=== PATIENT | female | born 1980 | race Caucasian/White ===

== ENCOUNTER 2016-08-12 15:47 | Inpatient (IN) | payer OTHER ==
[~2016-08-12] VITALS: Ht 162.6 cm; Wt 81.3 kg
[~2016-08-12 15:47] MED LIST: ADDERALL XR 2020 MG PO; ADDERALL XR 2525 MG PO; AMBIEN5 MG; AMPHETAMINE SALT5 MG PO; ATARAX,VISTARIL25 MG PO; BENTYL10 MG PO; CLONAZEPAM0.5 MG PO; CLONAZEPAM2 MG PO; CYMBALTA60 MG; CYMBALTA60 MG PO; DEPAKOTE500 MG PO; DESYREL100 MG PO; DULOXETINE HCL30 MG PO; EFFEXOR XR150 MG PO; EPIPEN ADU0.3 MG/0.3 IM; FLUOXETINE HCL20 MG PO; IMITREX100 MG PO; INDERAL LA120 MG PO; KEPPRA250 MG PO; LYRICA150 MG PO; MACROBID100 MG PO; OMEPRAZOLE20 MG PO; OXYCODONE HCL5 MG PO; PERCOCET 5/31 TABLET PO; PREDNISONE20 MG PO; PROMETHAZINE HC25 M1 PO; PROPRANOLOL HC120 MG; PROZAC20 MG PO; RANITIDINE HCL150 M1 PO; TOPAMAX25 MG PO; TORADOL10 MG PO; TRAMADOL HCL50 MG PO; TRILEPTAL75 MG; TRILEPTAL75 MG PO; TYLENOL WITH C1 EACH PO; ULTRAM50 MG PO; ZANTAC300 MG PO; ZOFRAN ODT4 MG PO; ZOFRAN4 MG PO
[2016-08-12] MEDS ORDERED: AMBIEN10 MG PO (16:23)
[2016-08-12 16:30] LABS: HEMATOCRIT 40.3 % (36.0-46.0); MCH 29.6 PG (29.0-34.0); MCHC 34.5 G/DL (30.0-36.0); MCV 85.7 FL (83-99); MEAN PLAT.VOLUME 10.2 uM^3 (9.5-12.4); PLATELET COUNT 255 K/uL (156-360); RBC DIS.WIDTH-CV 11.9 % (11.8-14.6); RBC DIS.WIDTH-SD 35.7 % (39-53); WHITE BLOOD COUNT 9.4 K/uL (4.1-10.2)
[2016-08-12 16:38] LABS: CHLORIDE 110 mEq/L (99-109); SODIUM 143 mEq/L (136-147)
[2016-08-12 16:40] LABS: GLUCOSE 98 mg/dL (70-99)
[2016-08-12 16:42] LABS: ANION GAP 9 MEQ/L (2-14)
[2016-08-12 16:43] LABS: SERUM ETHYL ALCOHOL < 10 mg/dL
[2016-08-12 16:44] LABS: GFR ESTIMATE (CALCULATED) > 59 mL/min/
[2016-08-12 16:45] LABS: UREA NITROGEN (BUN) 16 mg/dL (9-23)
[2016-08-12 17:23] LABS: AMPHETAMINE NEGATIVE (500 ng/mL); BARBITURATES NEGATIVE (200 ng/mL); BENZODIAZEPINES PRESUMPTIVE POSITIVE (150 ng/mL); COCAINE NEGATIVE (150 ng/mL); INTERNAL CONTROLS VALID? YES; METHADONE NEGATIVE (200 ng/mL); METHAMPHETAMINE NEGATIVE (500 ng/mL); OPIATES (MORPHINE) PRESUMPTIVE POSITIVE (100 ng/mL); OXYCODONE NEGATIVE (100 ng/mL); PHENCYCLIDINE NEGATIVE (25 ng/mL); PROPOXYPHENE NEGATIVE (300 ng/mL); THC CANNABINOIDS NEGATIVE (50 ng/mL); TRICYCLIC ANTIDEPRESSANTS NEGATIVE (300 ng/mL)
[2016-08-12 17:24] LABS: ADD MEDTOX COMMENT Y
[2016-08-12 17:46] LABS: BENZODIAZEPINES QUANT VALUE 0 NG/ML
[2016-08-12] MEDS ORDERED: KEPPRA750 MG PO (18:00)
[2016-08-12] MEDS ORDERED: CLONAZEPAM2 MG PO (18:00)
[2016-08-12] MEDS ORDERED: ULTRAM50 MG PO (18:00)
[2016-08-12] MEDS ORDERED: ADDERALL XR 2020 MG PO (18:01)
[2016-08-12] MEDS ORDERED: FLUOXETINE HCL40 MG PO (18:01)
[2016-08-12] MEDS ORDERED: CYMBALTA60 MG PO (18:01)
[2016-08-12 18:02] LABS: BENZODIAZEPINES, URINE SCREEN Negative (200 ng/mL)
[2016-08-12 19:26] VITALS: BP 154/89
[2016-08-12 19:44] VITALS: BP 154/89
[2016-08-13 07:54] VITALS: BP 119/81
[2016-08-13 15:43] VITALS: BP 100/56
[2016-08-14 08:00] VITALS: BP 105/66
[2016-08-14 15:32] VITALS: BP 113/69
[2016-08-15 07:55] VITALS: BP 110/57
[2016-08-15 15:25] VITALS: BP 118/63
[2016-08-16 09:08] VITALS: BP 169/82
[2016-08-16 16:14] VITALS: BP 125/72
[2016-08-17 07:51] VITALS: BP 109/67
[2016-08-17 15:38] VITALS: BP 130/81
[2016-08-18 07:54] VITALS: BP 126/71
[2016-08-18] MEDS ORDERED: SERTRALINE HCL50 MG PO (10:38)
== END 2016-08-18 14:22 | disposition home or self-care (01) | DRG 885 ==
LOC: EME 15:47 → 1WEST 17:47 → EDOF 17:47 → 1WEST 19:43
DX: F33.2 Major depressive disorder, recurrent severe without psychotic features (principal); R45.851 Suicidal ideations; G40.109 Localization-related (focal) (partial) symptomatic epilepsy and epileptic syndromes with simple partial seizures, not intractable, without status epilepticus; G43.909 Migraine, unspecified, not intractable, without status migrainosus; M79.7 Fibromyalgia; F41.9 Anxiety disorder, unspecified; G47.00 Insomnia, unspecified; Z88.0 Allergy status to penicillin; Z88.2 Allergy status to sulfonamides
CPT/HCPCS: 80048; 84999; 85027; 90839; 97150 GO; 97165 GO; 99281; 99284; G0480

== ENCOUNTER 2016-11-08 16:52 | Emergency (ER) | payer OTHER ==
[~2016-11-08] VITALS: Ht 162.6 cm; Wt 95.1 kg
[~2016-11-08 16:52] MED LIST changes: +AMBIEN10 MG PO; +FLUOXETINE HCL40 MG PO; +KEPPRA750 MG PO; +SERTRALINE HCL50 MG PO
[2016-11-08] MEDS ORDERED: DOXEPIN HCL100 MG PO (18:17)
[2016-11-08] MEDS ORDERED: ADDERALL XR 2020 MG PO (18:17)
[2016-11-08] MEDS ORDERED: TIZANIDINE HCL4 MG PO (18:18)
[2016-11-08] MEDS ORDERED: PROPRANOLOL HCL60 MG PO (18:18)
[2016-11-08 18:50] LABS: HEMATOCRIT 34.4 % (36.0-46.0); MCH 30.6 PG (29.0-34.0); MCHC 34.3 G/DL (30.0-36.0); MCV 89.4 FL (83-99); MEAN PLAT.VOLUME 9.5 uM^3 (9.5-12.4); PLATELET COUNT 234 K/uL (156-360); RBC DIS.WIDTH-CV 12.4 % (11.8-14.6); RBC DIS.WIDTH-SD 40.2 % (39-53); RED BLOOD COUNT 3.85 M/uL (3.80-5.20); WHITE BLOOD COUNT 7.6 K/uL (4.1-10.2)
[2016-11-08 19:04] LABS: ADD MIUA? YES; BILIRUBIN NEGATIVE; BLOOD NEGATIVE; COLOR YELLOW ((YELLOW)); GLUCOSE (STRIP) NEGATIVE; KETONES NEGATIVE; LEUKOCYTES TRACE; NITRITE NEGATIVE; PROTEIN (STRIP) NEGATIVE; SPECIFIC GRAVITY 1.014 (1.000-1.030); UROBILINOGEN 0.2 MG/DL (0.2-1.0)
[2016-11-08 19:06] LABS: BACTERIA NONE SEEN /HPF; EPITHELIAL CELLS RARE /HPF; MUCUS NONE SEEN /LPF; RED BLOOD CELLS 0-5 /HPF (0-5); WHITE BLOOD CELLS 0-5 /HPF (0-5)
[2016-11-08 19:07] LABS: CHLORIDE 106 mEq/L (99-109); POTASSIUM 3.9 mEq/L (3.7-5.4); SODIUM 139 mEq/L (136-147)
[2016-11-08 19:09] LABS: GLUCOSE 106 mg/dL (70-99)
[2016-11-08 19:10] LABS: ANION GAP 10 MEQ/L (2-14)
[2016-11-08 19:11] LABS: TOTAL BILIRUBIN 0.3 mg/dL (0.0-1.0)
[2016-11-08 19:13] LABS: ALKALINE PHOSPHATASE 66 IU/L (3-129); GFR ESTIMATE (CALCULATED) > 59 mL/min/
[2016-11-08 19:14] LABS: UREA NITROGEN (BUN) 13 mg/dL (9-23)
[2016-11-08 19:21] LABS: QUANTITATIVE HCG < 4.0 MIU/ML
[2016-11-08 19:22] LABS: CASTS NONE SEEN /LPF; CRYSTALS NONE SEEN
[2016-11-08 20:53] VITALS: BP 105/55
== END 2016-11-08 20:54 | disposition home or self-care (01) ==
LOC: EME 16:52
PROVIDERS: Nurse Practitioner Family
DX: R60.0 Localized edema (principal); M79.7 Fibromyalgia; D64.9 Anemia, unspecified; G89.29 Other chronic pain; R56.9 Unspecified convulsions; Z87.442 Personal history of urinary calculi; Z85.41 Personal history of malignant neoplasm of cervix uteri
CPT/HCPCS: 80053; 81003; 83880; 84702; 85027; 93005; 99281; 99284; J1885; J3010

== ENCOUNTER 2017-06-06 14:52 | Emergency (ER) | payer OTHER ==
[~2017-06-06] VITALS: Ht 162.6 cm; Wt 91.8 kg
[~2017-06-06 14:52] MED LIST changes: +DOXEPIN HCL100 MG PO; +PROPRANOLOL HCL60 MG PO; +TIZANIDINE HCL4 MG PO
[2017-06-06] MEDS ORDERED: PROMETHAZINE HC25 M1 PO (16:15)
[2017-06-06 16:58] LABS: HEMATOCRIT 45.2 % (36.0-46.0); MCH 30.3 PG (29.0-34.0); MCHC 34.1 G/DL (30.0-36.0); MEAN PLAT.VOLUME 10.3 uM^3 (9.5-12.4); PLATELET COUNT 269 K/uL (156-360); RBC DIS.WIDTH-CV 11.6 % (11.8-14.6); RBC DIS.WIDTH-SD 37.2 % (39-53); RED BLOOD COUNT 5.08 M/uL (3.80-5.20); WHITE BLOOD COUNT 7.9 K/uL (4.1-10.2)
[2017-06-06 17:07] LABS: CHLORIDE 105 mEq/L (99-109); POTASSIUM 5.1 mEq/L (3.7-5.4); SODIUM 137 mEq/L (136-147)
[2017-06-06 17:08] LABS: GLUCOSE 82 mg/dL (70-99)
[2017-06-06 17:10] LABS: ANION GAP 11 MEQ/L (2-14)
[2017-06-06 17:12] LABS: GFR ESTIMATE (CALCULATED) > 59 mL/min/
[2017-06-06 17:13] LABS: UREA NITROGEN (BUN) 12 mg/dL (9-23)
[2017-06-06] MEDS ORDERED: TOPAMAX50 MG PO (19:45)
[2017-06-06] MEDS ORDERED: TOPAMAX25 MG PO (19:45)
[2017-06-06 19:46] VITALS: BP 122/81
== END 2017-06-06 19:52 | disposition home or self-care (01) ==
LOC: EME 14:52
PROVIDERS: Physician Assistant Medical
DX: R56.9 Unspecified convulsions (principal); G43.909 Migraine, unspecified, not intractable, without status migrainosus; M79.7 Fibromyalgia; F32.9 Major depressive disorder, single episode, unspecified; F41.9 Anxiety disorder, unspecified; Z85.41 Personal history of malignant neoplasm of cervix uteri; Z88.0 Allergy status to penicillin
CPT/HCPCS: 70450; 80048; 85027; 93005; 99281; 99284; J1885; J7030

== ENCOUNTER 2017-12-06 12:57 | Day surgery (SDC) | payer OTHER ==
[~2017-12-06] VITALS: Ht 162.6 cm; Wt 99.8 kg
[~2017-12-06 12:57] MED LIST changes: +INDERAL LA60 MG PO; +LORTAB 7.5-3251 EACH PO; +LYRICA50 MG PO; +SINEQUAN100 MG PO; +TOPAMAX50 MG PO; +ZANAFLEX4 MG PO
== END 2017-12-06 15:25 | disposition home or self-care (01) ==
LOC: PAIN 12:57 → SDC 13:45 → PAIN 15:25
DX: M47.812 Spondylosis without myelopathy or radiculopathy, cervical region (principal); G89.29 Other chronic pain; M54.5 Low back pain; M47.816 Spondylosis without myelopathy or radiculopathy, lumbar region; M19.90 Unspecified osteoarthritis, unspecified site; M25.571 Pain in right ankle and joints of right foot; M79.1 Myalgia; M06.9 Rheumatoid arthritis, unspecified; Z88.0 Allergy status to penicillin; Z88.2 Allergy status to sulfonamides; Z88.8 Allergy status to other drugs, medicaments and biological substances
CPT/HCPCS: J1030; J2250; S0020

== ENCOUNTER 2017-12-27 13:10 | Day surgery (SDC) | payer OTHER ==
[~2017-12-27] VITALS: Ht 162.6 cm; Wt 99.8 kg
== END 2017-12-27 14:10 | disposition home or self-care (01) ==
LOC: PAIN 13:10 → SDC 13:30 → PAIN 14:10
PROC: 3E0T33Z Introduction of Anti-inflammatory into Peripheral Nerves and Plexi, Percutaneous Approach (ICD-10-PCS; principal; 2017-12-27)
PROC: BR141ZZ Fluoroscopy of Cervical Facet Joint(s) using Low Osmolar Contrast (ICD-10-PCS; principal; 2017-12-27)
PROC: 3E0T3BZ Introduction of Anesthetic Agent into Peripheral Nerves and Plexi, Percutaneous Approach (ICD-10-PCS; principal; 2017-12-27)
DX: M47.812 Spondylosis without myelopathy or radiculopathy, cervical region (principal); M79.7 Fibromyalgia; G89.29 Other chronic pain; G40.909 Epilepsy, unspecified, not intractable, without status epilepticus; F41.9 Anxiety disorder, unspecified; J45.909 Unspecified asthma, uncomplicated; Z88.0 Allergy status to penicillin; Z88.2 Allergy status to sulfonamides; Z79.891 Long term (current) use of opiate analgesic
CPT/HCPCS: J1030; J2250; S0020